=== PATIENT | female | born 1990 | race Caucasian/White ===

== ENCOUNTER → 2020-03-27 10:27 | Outpatient (CLI) | payer BC, SELFPAY ==
[2020-03-27 09:13] VITALS: BMI 28.9
[2020-04-01 04:58] LABS: HPV Reflexed? NOT INDICATED
== END ==
PROVIDERS: PCP Family Medicine; Referring Provider Obstetrics & Gynecology; Visit Provider Obstetrics & Gynecology
DX: Z12.4 Encounter for screening for malignant neoplasm of cervix (principal); O03.9 Complete or unspecified spontaneous abortion without complication
CPT/HCPCS: 36415; 84702; 88175; G0145

== ENCOUNTER → 2020-03-29 08:12 | Outpatient (CLI) | payer BC, SELFPAY ==
[2020-03-27 09:13] VITALS: BMI 28.9
== END ==
PROVIDERS: PCP Family Medicine; Referring Provider Obstetrics & Gynecology; Visit Provider Obstetrics & Gynecology
DX: O03.9 Complete or unspecified spontaneous abortion without complication (principal)
CPT/HCPCS: 36415; 84702

== ENCOUNTER 2020-04-01 10:43 | Day surgery (SDC) | payer BC, SELFPAY ==
[2020-03-31 09:04] VITALS: BMI 28.9
--- NOTE | 2020-04-01 08:11 | PCM.HPOB.BLA ---
- Problem List (1) Missed Status: Acute Comment: plan suction d and c (2) Supervision of other normal Status: Acute Comment: SELMA 10/29/2020 PC: Keith Spouse: Corona History and Physical Date of Admission: 04/01/20 Intake Vital Signs 03/31/20 Height 5 ft 03/31/20 Weight: 149 lb 03/31/20 BMI 29.0 03/31/20 BP 116/60 Intake Visit Reasons: possible SAB Chief Complaint: possible SAB Director Decision Support Required: No Is patient in pain?: No Allergies No Known Allergies Allergy (Verified 03/31/20 09:03) Post menopausal: No Patient : Yes : No [facility] Medical History No significant medical problems (Acute) Surgical History H/O section (Acute ~2012) Family History Mother Hypertension Grandfather Diabetes Social History (Updated 03/31/20 @ 10:[address] Leatha Berry MD) adopted: No household members: family housing: house number of children: 1 current occupational status: employed current occupation: [employer] current occupational exposures/hazards: No history of recent travel: No sexually active: Yes Smoking Status: Former smoker second hand exposure: No alcohol intake: current alcohol intake frequency: holidays/special occasions only substance use type: does not use seatbelt use: always do you feel safe at home: Yes additional social history: [place]- [employer] HPI possible SAB : Details: MAO WU is a 29 year old who presents for fu of early . her hcg levels are decreasing and GS is collapsing, no pole seen now. confirmed nonviable on ultrasound today. Pregancy History 2 Elective abortions Hx Para 1 Spontaneous abortions Hx # Term Pregnancies Ectopic pregnancies Hx # Pregnancies Multiple births # of living children 1 Past Pregnancies Del. Date Name GA/Weeks Outcome Route Bth Weight Gen Labor Lgth Anesthesia Del Locatn Provider FOB 02/01/13 Keith Jurado 40 live - full term 7lb Male [address] [facility] Delivery Date: 02/01/13 On 03/27/20 @ 09:26 Mitali Overton STAT C/S CPD ROS Const Constitutional: Denies fatigue, fever(s), headache(s), increased appetite, poor appetite, weight gain or weight loss Cardio Card: Denies chest pain Resp Resp: Denies cough or dyspnea GI GI: Reports as per HPI; denies abdominal pain, constipation, nausea or vomiting : Reports as per HPI; denies difficulty urinating, painful urination, nipple discharge, urinary frequency, urinary incontinence, urinary hesitancy, urinary urgency, vaginal discharge, vaginal dryness, vaginal odor or vaginal itching Skin Skin/Breast: Denies change in hair, breast lump, breast pain, breast skin changes or nipple discharge Exam Const General: cooperative, healthy appearing, comfortable, no acute distress, well developed Nutritional Appearance: average body habitus Orientation: alert HENMT Head: normal to inspection, normocephalic Neck Neck: normal visual inspection, trachea midline Thyroid: thyroid normal Resp Effort & Inspection: normal respiratory effort GI Inspection: normal to inspection, non-distended Palpation: soft, no hepatosplenomegaly General: bladder normal to palpation External Female Exam: normal external appearance, normal appearance of the urethra Urethra: normal appearance of the urethra, normal palpation, no discharge Speculum Exam - Vagina: normal appearance of the vagina, normal vaginal discharge Speculum Exam - Cervix: normal appearance of the cervix, nontender Bimanual Exam- Vagina & Uterus: normal bimanual exam, uterine size normal, bladder normal to palpation, uterine shape normal, No cervical tenderness, uterine mobility normal, uterine consistency normal, normal cervical palpation, uterus non-tender Bimanual Exam- Adnexa, other: normal adnexae, adnexae mobile, no adnexal masses, pelvic support normal Pelvic Support: normal Skin General: no rashes or lesions noted Assessment & Plan Problems 1. Missed O02.1 plan suction d and c Plan discussed medical vs surgical management patient wishes to proceed with surgical. plan d and c tomorrow. After discussing the patient's diagnosis and treatment plan options, patient wishes to proceed with surgical management. I have discussed with the patient the risks, benefits, and alternatives of the procedure which include but are not limited to risks of anesthesia, bleeding, infection, possible damage to bowel, bladder, or surrounding vasculature which could lead to additional surgery to evaluate any complications. Patient agrees to procedure and wishes to proceed. Coding Level of Care Code Off vis,est,level 4 Diagnoses Missed O02.1 UPDATE- I have seen the patient and performed any clinically relevant updates to the history and physical exam. Leatha Berry MD
--- NOTE | 2020-04-01 08:14 | DCINST_ITS ---
Discharge Diet: No Restrictions Discharge Activity: Return to Normal Activity, May Shower, May Take a Tub Bath Allergies/Adverse Reactions: Allergies No Known Allergies Allergy (Verified 03/31/20 11:33) Medications to take at Discharge Multivitamin 1 ea PO DAILY 03/31/20 Naproxen [Naprosyn] 250 - 500 mg PO Q8H PRN PRN #30 tab 04/01/20 The following prescriptions were given: Naproxen [Naprosyn] 250 - 500 mg PO Q8H PRN PRN #30 tab PRN Reason: MILD PAIN Transmission Status: Pending to [facility] Orders to be completed after discharge: Type & Screen - PAT ONLY Time Frame: 04/01/20, Facility: [facility], Location: Laboratory CBC-Complete Blood Cnt No Diff Time Frame: 04/01/20, Facility: [facility], Location: Laboratory CORONAVIRUS 19, [place] SCREEN Time Frame: 04/01/20, Facility: [facility], Location: Laboratory Primary Care Physician: Percy Marshall MD [Primary Care Provider] - Test Results: Test results from this visit will be discussed in further detail at your follow- up appointment, if applicable. Please Follow Up With: Leatha Berry MD - [phone]
--- NOTE | 2020-04-01 09:17 | PCM.OPRPT ---
Problem List (1) Missed Status: Acute Comment: plan suction d and c (2) Supervision of other normal Status: Acute Comment: SELMA 10/29/2020 PC: Keith Spouse: Corona Report of Operation Date of Procedure: 04/01/20 Pre-Operative Diagnosis: missed 6 weeks Post-Operative Diagnosis: same Surgery/Procedure Performed:: suction d and c Description of Surgical Findings:: missed Type of Anesthesia:: Local MAC Special Medications: none Specimen's removed: poc Drains: none Estimated Blood Loss (mL): 100 Fluids Replaced: crystalloid Description of Procedure: Patient was taken to the operating room and placed under MAC local anesthesia. She was prepped and draped in the normal sterile fashion the dorsal lithotomy position. Bladder was drained of clear urine and anterior lip of the cervix was grasped and the uterus sounded to 9. Cervix was progressively dilated to allow passage of a 9mm suction curette. Progressive passes were made removing the retained products of conception without complication. Sharp curettage confirmed complete removal of the retained products. All instruments were removed from the vagina and excellent hemostasis was noted and the patient was taken to recovery in stable condition. Grafts/Implants Used: none - Complications none - Admit VTE Documentation VTE Present on Admission: No VTE Mechan Device Prophylaxis: SCD's Multi Select Codes - Urinary/Genital Urinary/Genital CPT Codes: 87587 Surg Trtmt missed Ab 1TM
[2020-04-01 11:07] LABS: Hematocrit 39.6 % (37-47); Hemoglobin 13.2 g/dL (12.0-15.0); Mean Corp Hgb Conc 33.3 g/dL (32-36); Mean Corpuscular Hgb 29.9 pg (27.0-32.0); Mean Corpuscular Volume 89.8 fL (81-99); Mean Platelet Vol. 9.8 fl (6.2-12.0); Platelet Count 285 K/mm3 (150-450); RBC Distribution Width CV 12.1 % (11.6-14.6); RBC Distribution Width SD 39.8 fl (35.1-43.9); Red Blood Count 4.41 M/mm3 (4.2-5.4); White Blood Count 7.7 K/mm3 (4.4-11.0)
[2020-04-01 11:13] VITALS: BP 116/62; PULSE 81; RESP 16; TEMP 37.2; O2SAT 100; BMI 28.6
[2020-04-01] MEDS: Doxycycline 100 MG CAPSULE PO (11:22)
[2020-04-01] MEDS: Lactated Ringers 1,000 ML 100 ML IV (11:25)
[2020-04-01 12:10] VITALS: BP 103/65; BP 116/62; PULSE 78; RESP 16; TEMP 37.1; O2SAT 100
[2020-04-01 12:15] VITALS: BP 116/62; BP 95/70; PULSE 66; RESP 18; O2SAT 100
--- NOTE | 2020-04-01 12:15 | POC_PTH ---
PATIENT: MAO WU LOC: [place] U#:[id number] AGE/SX: 29/F ROOM: RE04/01/[address]: Dr. Leatha Berry MD : 1990 BED: DIS: 04/01/2020 SPEC #: [id number] RECD: 04/01/20 12:22 STATUS: KADE REVíctor #: [id number] AZEEM: 04/01/20 12:[address]: Leatha Berry DEPT: SURGICAL PATHOLOGY RECD BY: Marco Vang ENTERED: 04/02/20 09:23 SP TYPE: PROD CONC OTHR DR: LUIS FERNANDO Lara Tissues: Product of conception, NOS Procedures: Surgery Specimen Level IV HEADER OPERATION: Suction D & C PRE-OP DIAGNOSIS: Missed TISSUE SUBMITTED: Products of conception MICROSCOPIC DIAGNOSIS Products of conception: [place], gestational endometrium and immature chorionic villi (products of conception). SJ:leanna 04/03/20 MICROSCOPIC DESCRIPTION Slides are reviewed. GROSS DESCRIPTION Received in fixative is one container labeled with the patient's name and designated products of conception. The specimen consists of multiple irregular fragments of peña soft tissue that in aggregate measure 5 x 2.5 x 1 cm. tissue is not identified. Steam Table Associate tissue is submitted in three cassettes. / SJ:leanna 04/02/20 TC:5 CPT: 17959
[2020-04-01 12:20] VITALS: BP 116/62; BP 91/66; PULSE 70; RESP 18; O2SAT 100
[2020-04-01 12:25] VITALS: BP 116/62; BP 88/68; PULSE 71; RESP 18; TEMP 36.7; O2SAT 100
[2020-04-01 13:20] VITALS: BP 108/64; BP 116/62; PULSE 67; RESP 18; TEMP 36.6; O2SAT 100
== END 2020-04-01 13:22 | disposition home or self-care (01) ==
LOC: SDC 10:45 → AC 10:47
PROVIDERS: Anesthesiology; PCP Nurse Practitioner Family; Referring Provider Obstetrics & Gynecology; Visit Provider Obstetrics & Gynecology
PROC: (CPT 59820; principal; 2020-04-01 12:00)
DX: O02.1 Missed abortion (principal); Z87.891 Personal history of nicotine dependence
CPT/HCPCS: 01965; 59820; 36415; 85027; 86850; 86900; 86901; 87635; 88305; G2023; J7120; J2405; U0003

== ENCOUNTER → 2020-05-08 | Outpatient (CLI) | payer BC, SELFPAY ==
[2020-05-08 10:44] VITALS: BMI 28.6
== END | disposition home or self-care (01) ==
LOC: LABSPEC 16:47
PROVIDERS: PCP Nurse Practitioner Family; Referring Provider Obstetrics & Gynecology; Visit Provider Obstetrics & Gynecology
DX: N89.8 Other specified noninflammatory disorders of vagina (principal)
CPT/HCPCS: 87070; 87205

== ENCOUNTER → 2021-03-25 15:10 | Outpatient (CLI) | payer BC, SELFPAY ==
[2021-03-16 16:07] VITALS: BMI 28.6
[2021-03-25 16:29] LABS: hCG Titer Quant., Serum 530 mIU/mL (1-3)
== END ==
LOC: PAVLAB 15:11
PROVIDERS: PCP Nurse Practitioner Family; Referring Provider Obstetrics & Gynecology; Visit Provider Obstetrics & Gynecology
DX: N91.2 Amenorrhea, unspecified (principal)
CPT/HCPCS: 36415; 84702

== ENCOUNTER → 2021-03-27 14:56 | Outpatient (CLI) | payer BC, SELFPAY ==
[2021-03-16 16:07] VITALS: BMI 28.6
[2021-03-27 17:24] LABS: hCG Titer Quant., Serum 1006 mIU/mL (1-3)
== END ==
LOC: LAB 14:57
PROVIDERS: Nurse Practitioner Women's Health; PCP Nurse Practitioner Family; Referring Provider Obstetrics & Gynecology; Visit Provider Obstetrics & Gynecology
DX: N91.2 Amenorrhea, unspecified (principal)
CPT/HCPCS: 36415; 84702

== ENCOUNTER → 2021-04-14 16:48 | Outpatient (CLI) | payer BC, SELFPAY ==
[2021-03-30 10:40] VITALS: BMI 28.6
--- NOTE | 2021-04-14 16:51 | US_ITS ---
STUDY: FIRST TRIMESTER OBSTETRICAL ULTRASOUND REASON FOR EXAM: Female, 30 years old viability LMP: 02/21/2021 TECHNIQUE: Transvaginal TECHNICAL QUALITY: Adequate. PRIOR ULTRASOUND: None. FINDINGS: There is visualization of a single gestational sac in a normal intrauterine position. The mean sac diameter (MSD) measures 2 cm, indicating an estimated gestational age (EGA) of 6 weeks, 6 days. The gestational sac shape is within normal limits. There is a 6 mm x 6 mm x 2 mm crescentic hypoechoic fluid collection adjacent to the gestational sac suggestive of a small subchorionic bleed. There is a visualized yolk sac. The yolk sac measures 3.1 mm. The placenta is non-visualized. There is visualization of a live embryo. The crown-rump length (CRL) measures 1.03 cm, indicating an estimated gestational age (EGA) of 7 weeks, 1 days. There is demonstrated cardiac activity with a heart rate of 153 bpm. The estimated gestation age (EGA) by LMP is 7 weeks, 3 days. The estimated date of delivery (SELMA) by LMP is 11/28/2021. The estimated gestation age (EGA) by US is 7 weeks, 2 days. The estimated date of delivery (SELMA) by US is 11/29/2021. The uterus measures 10 cm x 6.5 cm x 5.2 cm. There is no demonstrated uterine fibroid. The cervix is closed. The right ovary was not visualized. The left ovary measures 3.2 cm x 2.2 cm by 2.2 cm. There is a 2.1 cm x 1.9 cm x 1.7 cm cyst. There is no visualized left adnexal mass or complex lesion. There is no fluid in the cul de sac. US/Transvaginal w/Preg US IMPRESSION: Single live intrauterine gestation with mean gestational age of 7 weeks and 2 days. Small subchorionic bleed. Electronically Signed: Sebastian Chappell MD at 9:31 EDT , Service support ,
== END ==
LOC: US 16:49
PROVIDERS: PCP Nurse Practitioner Family; Referring Provider Obstetrics & Gynecology; Visit Provider Obstetrics & Gynecology
DX: O20.0 Threatened abortion (principal)
CPT/HCPCS: 76817

== ENCOUNTER → 2021-04-27 14:03 | Outpatient (CLI) | payer BC, SELFPAY ==
[2021-03-30 10:40] VITALS: BMI 28.6
[2021-04-27 15:39] LABS: hCG Titer Quant., Serum 105665 mIU/mL (1-3)
== END ==
LOC: PAVLAB 14:04
PROVIDERS: Nurse Practitioner Women's Health; PCP Nurse Practitioner Family; Referring Provider Obstetrics & Gynecology; Visit Provider Obstetrics & Gynecology
DX: Z34.90 Encounter for supervision of normal pregnancy, unspecified, unspecified trimester (principal)
CPT/HCPCS: 36415; 84702

== ENCOUNTER → 2021-05-04 10:22 | Outpatient (CLI) | payer BC, SELFPAY ==
[2021-05-04 09:29] VITALS: BMI 28.6
[2021-05-04 10:45] LABS: Absolute Lymphocyte Count 1.14 X10^3/uL (0.83-4.51); Basophil# 0.02 X10^3/uL; Basophil% 0.3 % (0-1); Eosinophils% 1.3 % (0-5); Hemoglobin 12.2 g/dL (12.0-15.0); Lymphocyte # 1.14 X10^3/ul (0.83-4.51); Lymphocyte % 14.5 % (19-41); Mean Corp Hgb Conc 33.9 g/dL (32-36); Mean Corpuscular Hgb 29.8 pg (27.0-32.0); Mean Platelet Vol. 10.4 fl (6.2-12.0); Monocyte# 0.54 X10^3/uL; Monocyte% 6.9 % (0-10); NRBC Flagged by Analyzer 0 % (0-5); Neutrophil # 6.02 X10^3/uL (2.7-7.7); Neutrophil % 76.6 % (47-70); Platelet Count 258 K/mm3 (150-450); RBC Distribution Width CV 12.3 % (11.6-14.6); RBC Distribution Width SD 40.3 fl (35.1-43.9); Red Blood Count 4.09 M/mm3 (4.2-5.4); White Blood Count 7.9 K/mm3 (4.4-11.0)
[2021-05-04 11:42] LABS: Amphetamine Urine VISTA NEGATIVE (<1000 ng/mL); Barbiturate Urine VISTA NEGATIVE (< 200 ng/mL); Benzodiazepine Urine VISTA NEGATIVE (< 200 ng/mL); Cocaine Urine VISTA NEGATIVE (< 300 ng/mL); Ecstacy Urine VISTA NEGATIVE (< 500 ng/mL); Methadone Urine VISTA NEGATIVE (< 300 ng/mL); PCP Urine VISTA NEGATIVE (< 25 ng/mL); THC Urine VISTA NEGATIVE (< 50 ng/mL); Vista UDS pH Range 7
[2021-05-04 12:00] LABS: HIV - WCH Non-Reactive (Nonreactive); Hepatitis B Surface Antigen Non-Reactive (Nonreactive); Hepatitis C Antibody Non-Reactive (Nonreactive); Rubella IgG Reactive (Nonreactive); Syphilis Antibodies Non-reactive
[2021-05-05 20:08] LABS: Chlamydia By Nucleic Acid AMP Negative (Negative)
[2021-05-05 21:31] LABS: Gonococcus By Nucleic Acid AMP Negative (Negative)
== END ==
PROVIDERS: PCP Nurse Practitioner Family; Referring Provider Obstetrics & Gynecology; Visit Provider Obstetrics & Gynecology
DX: Z34.81 Encounter for supervision of other normal pregnancy, first trimester (principal)
CPT/HCPCS: 36415; 80307; 85025; 86703; 86762; 86780; 86803; 86850; 86900; 86901; 87086; 87088; 87340; 87491; 87591

== ENCOUNTER → 2021-07-06 13:28 | Outpatient (CLI) | payer BC, SELFPAY ==
--- NOTE | 2021-07-06 13:33 | US_ITS ---
STUDY: SECOND AND THIRD TRIMESTER OBSTETRICAL ULTRASOUND REASON FOR EXAM: Female, 31 years old anatomy LMP: 02/22/2021. TECHNIQUE: Transabdominal and Transvaginal TECHNICAL QUALITY: Adequate. PRIOR ULTRASOUND: Comparison is made with prior study dated 04/14/2021. FINDINGS: There is a single intrauterine fetus. The fetus is in a cephalic presentation. There is demonstrated cardiac activity with a heart rate of 145 bpm. There is a normal amniotic fluid volume. The largest amniotic fluid pocket measures 4.5 cm x 4 cm. The amniotic fluid index (MORAIMA) is within normal limits. The placenta is posterior in location and is not low lying. There are Grade 0 placental changes. The cervix measures 5.1 cm in length. The bilateral adnexal regions are normal. BIOMETRY: BPD: 4.2 cm: 18 weeks, 4 days HC: 15.9 cm: 18 weeks, 5 days AC: 14.8 cm: 20 weeks, 0 days FL: 3.0 cm: 19 weeks, 1 days CI: 75% FL/BPD: 72% FL/HC: FL/AC: 20% HC/AC: 1.07 age by current US: 18 weeks, 6 days. SELMA by current US: 12/01/2021. Estimated weight: 299 grams, +/- 45 grams, 69 %. age by prior US: 19 weeks, 1 days. SELMA by prior US: 11/29/2019. Age by LMP: 19 weeks, 1 days. SELMA by LMP: 11/29/2021. ANATOMY: Gender: Female Cranium: Normal lateral ventricles. Normal choroid plexus. Normal cerebellum. Normal cisterna magna. Normal face, nose and lips. Chest: Normal 4-chamber heart. Abdomen/Pelvis: Normal diaphragm. Normal stomach. Normal abdominal wall. Normal cord insertion. Normal 3 vessel cord. Normal kidneys. Normal bladder. Spine: Normal cervical spine. Normal thoracic spine. Normal lumbar spine. Normal sacrum. Extremities: Normal bilateral upper extremities. Normal bilateral lower extremities. IMPRESSION: Single live intrauterine gestation with administration of 19 weeks and 1 day. The measurements obtained today fall within normal expected range. Electronically Signed: Sebastian Chappell MD at 15:41 EDT , Service support , STUDY: FIRST TRIMESTER OBSTETRICAL ULTRASOUND REASON FOR EXAM: Female, 31 years old . Cervical length measurement. LMP: 02/22/2021. TECHNIQUE: Transvaginal TECHNICAL QUALITY: Adequate. PRIOR ULTRASOUND: None. FINDINGS: Transvaginal examination for assessment of the cervical mass. Cervical length measures 5.1 cm. US/Transvaginal Non- IMPRESSION: Cervical length measures 5.1 cm. Electronically Signed: Sebastian Chappell MD at 15:42 EDT , Service support ,
--- NOTE | 2021-07-06 13:33 | US_ITS ---
STUDY: SECOND AND THIRD TRIMESTER OBSTETRICAL ULTRASOUND REASON FOR EXAM: Female, 31 years old anatomy LMP: 02/22/2021. TECHNIQUE: Transabdominal and Transvaginal TECHNICAL QUALITY: Adequate. PRIOR ULTRASOUND: Comparison is made with prior study dated 04/14/2021. FINDINGS: There is a single intrauterine fetus. The fetus is in a cephalic presentation. There is demonstrated cardiac activity with a heart rate of 145 bpm. There is a normal amniotic fluid volume. The largest amniotic fluid pocket measures 4.5 cm x 4 cm. The amniotic fluid index (MORAIMA) is within normal limits. The placenta is posterior in location and is not low lying. There are Grade 0 placental changes. The cervix measures 5.1 cm in length. The bilateral adnexal regions are normal. BIOMETRY: BPD: 4.2 cm: 18 weeks, 4 days HC: 15.9 cm: 18 weeks, 5 days AC: 14.8 cm: 20 weeks, 0 days FL: 3.0 cm: 19 weeks, 1 days CI: 75% FL/BPD: 72% FL/HC: FL/AC: 20% HC/AC: 1.07 age by current US: 18 weeks, 6 days. SELMA by current US: 12/01/2021. Estimated weight: 299 grams, +/- 45 grams, 69 %. age by prior US: 19 weeks, 1 days. SELMA by prior US: 11/29/2019. Age by LMP: 19 weeks, 1 days. SELMA by LMP: 11/29/2021. ANATOMY: Gender: Female Cranium: Normal lateral ventricles. Normal choroid plexus. Normal cerebellum. Normal cisterna magna. Normal face, nose and lips. Chest: Normal 4-chamber heart. Abdomen/Pelvis: Normal diaphragm. Normal stomach. Normal abdominal wall. Normal cord insertion. Normal 3 vessel cord. Normal kidneys. Normal bladder. Spine: Normal cervical spine. Normal thoracic spine. Normal lumbar spine. Normal sacrum. Extremities: Normal bilateral upper extremities. Normal bilateral lower extremities. IMPRESSION: Single live intrauterine gestation with administration of 19 weeks and 1 day. The measurements obtained today fall within normal expected range. Electronically Signed: Sebastian Chappell MD at 15:41 EDT , Service support , STUDY: FIRST TRIMESTER OBSTETRICAL ULTRASOUND REASON FOR EXAM: Female, 31 years old . Cervical length measurement. LMP: 02/22/2021. TECHNIQUE: Transvaginal TECHNICAL QUALITY: Adequate. PRIOR ULTRASOUND: None. FINDINGS: Transvaginal examination for assessment of the cervical mass. Cervical length measures 5.1 cm. US/OB Anatomy Scan IMPRESSION: Cervical length measures 5.1 cm. Electronically Signed: Sebastian Chappell MD at 15:42 EDT , Service support ,
== END ==
PROVIDERS: PCP Nurse Practitioner Family; Visit Provider Obstetrics & Gynecology
DX: O09.92 Supervision of high risk pregnancy, unspecified, second trimester (principal); Z3A.19 19 weeks gestation of pregnancy
CPT/HCPCS: 76805; 76830

== ENCOUNTER → 2021-08-31 10:28 | Outpatient (CLI) | payer BC, SELFPAY ==
[2021-08-31 10:44] LABS: Absolute Lymphocyte Count 1.25 X10^3/uL (0.83-4.51); Absolute Neutrophil Count 8.8 X10^3/uL (2.0-7.7); Basophil# 0.03 X10^3/uL; Basophil% 0.3 % (0-1); Eosinophil# 0.12 X10^3/uL; Eosinophils% 1.1 % (0-5); Hematocrit 34.7 % (37-47); Hemoglobin 11.8 g/dL (12.0-15.0); Lymphocyte # 1.25 X10^3/ul (0.83-4.51); Lymphocyte % 11.4 % (19-41); Mean Corpuscular Volume 88.3 fL (81-99); Mean Platelet Vol. 10.3 fl (6.2-12.0); Monocyte% 6.4 % (0-10); NRBC Flagged by Analyzer 0 % (0-5); Neutrophil # 8.75 X10^3/uL (2.7-7.7); Platelet Count 252 K/mm3 (150-450); RBC Distribution Width CV 12.9 % (11.6-14.6); RBC Distribution Width SD 41.8 fl (35.1-43.9); Red Blood Count 3.93 M/mm3 (4.2-5.4); White Blood Count 10.9 K/mm3 (4.4-11.0)
[2021-08-31 11:09] LABS: Glucose Challenge Gest 1H 50g 117 mg/dL (70-140)
== END ==
PROVIDERS: Nurse Practitioner Women's Health; PCP Nurse Practitioner Family; Referring Provider Obstetrics & Gynecology; Visit Provider Obstetrics & Gynecology
DX: Z34.92 Encounter for supervision of normal pregnancy, unspecified, second trimester (principal); Z3A.20 20 weeks gestation of pregnancy
CPT/HCPCS: 36415; 82950; 85025

== ENCOUNTER → 2021-10-06 15:03 | Outpatient (CLI) | payer BC, SELFPAY ==
--- NOTE | 2021-10-06 15:06 | US_ITS ---
STUDY: SECOND AND THIRD TRIMESTER OBSTETRICAL ULTRASOUND - LIMITED REASON FOR EXAM: Female, 31 years old growth LMP: 02/22/2021 PRIOR ULTRASOUND: 07/06/2021 TECHNIQUE: Transabdominal TECHNICAL QUALITY: Adequate. FINDINGS: There is a single intrauterine fetus. The fetus is in a cephalic presentation. There is demonstrated cardiac activity with a heart rate of 152 bpm. There is a normal amniotic fluid volume. The largest amniotic fluid pocket measures 6.1 cm. The amniotic fluid index (MORAIMA) is 11.8 cm. The placenta is fundal in location. There are Grade 0 placental changes. The cervix measures 3.5 cm cm in length. BIOMETRY: BPD: 7.5 cm: 30 weeks, 2 days HC: 28.8 cm: 31 weeks, 4 days AC: 30.9 cm: 34 weeks, 6 days FL: 6.2 cm: 31 weeks, 6 days Age by LMP: 32 weeks, 2 days. SELMA by LMP: 11/29/2021. age by current US: 32 weeks, 0 days. SELMA by current US: 2222. Estimated weight: 2185 grams, +/- 328 grams, 74 percentile. Gender: US/OB Limited With Biometrics IMPRESSION: Living intrauterine of 32 weeks 0 days as described above. Electronically Signed: Justin Mooney MD at 8:58 EST Tel , Service support ,
== END ==
PROVIDERS: PCP Nurse Practitioner Family; Referring Provider Obstetrics & Gynecology; Visit Provider Obstetrics & Gynecology
DX: O98.513 Other viral diseases complicating pregnancy, third trimester (principal); U07.1 COVID-19; Z3A.32 32 weeks gestation of pregnancy
CPT/HCPCS: 76816

== ENCOUNTER 2021-11-02 10:47 | Outpatient (CLI) | payer BC, SELFPAY ==
--- NOTE | 2021-11-02 10:50 | US_ITS ---
STUDY: SECOND AND THIRD TRIMESTER OBSTETRICAL ULTRASOUND - LIMITED REASON FOR EXAM: Female, 31 years old growth LMP: 02/22/2021. PRIOR ULTRASOUND: Comparison is made with prior study dated 10/06/2021. TECHNIQUE: Transabdominal TECHNICAL QUALITY: Adequate. FINDINGS: There is a single intrauterine fetus. The fetus is in a cephalic presentation. There is demonstrated cardiac activity with a heart rate of 141 bpm. There is a normal amniotic fluid volume. The largest amniotic fluid pocket measures 5.1 cm x 2.9 cm. The amniotic fluid index (MORAIMA) is 14.2 cm. The placenta is right lateral in location and is not low lying. There are Grade 2 placental changes. The cervix measures 3.8 cm in length. BIOMETRY: BPD: 8.45 cm: 34 weeks, 0 days HC: 32.04 cm: 36 weeks, 0 days AC: 33.68 cm: 37 weeks, 4 days FL: 7.04 cm: 36 weeks, 0 days Age by LMP: 36 weeks, 1 days. SELMA by LMP: 11/29/2021. age by prior US: 35 weeks, 6 days. SELMA by prior US: 12/01/2021. age by current US: 35 weeks, 5 days. SELMA by current US: 12/02/2021. Estimated weight: 3004 grams, +/- 451 grams, 66.4 percentile. US/OB Limited With Biometrics IMPRESSION: Single live intrauterine gestation with a mean gestational age of 35 weeks and 6 days. The measurements obtained today fall within the normal expected range. Electronically Signed: Sebastian Chappell MD at 12:57 EST , Service support ,
== END 2021-11-02 23:59 | disposition short-term general hospital (02) ==
PROVIDERS: PCP Nurse Practitioner Family; Referring Provider Obstetrics & Gynecology; Visit Provider Obstetrics & Gynecology
DX: O98.513 Other viral diseases complicating pregnancy, third trimester (principal); U07.1 COVID-19; Z3A.35 35 weeks gestation of pregnancy
CPT/HCPCS: 76816; 87077; 87081; 87186

== ENCOUNTER 2021-11-23 06:36 | Inpatient (IN) | payer BC, SELFPAY ==
--- NOTE | 2021-11-22 23:03 | HP.PCM.OB_ITS ---
HPI - General HPI Narrative MAO WU, is a 31 F who presents for scheduled repeat c section. Maternal Data Information SELMA Calculator Estimated Delivery Date Method Current WG Current Estimate 11/29/21 Ultrasound #1 39w 0d Other Estimates 11/14/21 LMP (Uncertain) 41w 1d PFSH PFSH Medical History No significant medical problems Positive GBS test Home Medications prenat.vits,tono,bjv-gowd-sgkba 1 tab PO DAILY 03/16/21 [History Last Taken Unkn own] promethazine 12.5 mg tablet 12.5 mg PO Q6H PRN #60 tab 04/20/21 [Rx Last Taken Unknown] aspirin 81 mg chewable tablet 81 mg PO DAILY 11/02/21 [History Last Taken Unknown] Allergy/AdvReac Type Severity Reaction Status Date / Time No Known Allergies Allergy Verified 11/16/21 12:04 Family History Mother Hypertension Grandfather Diabetes Surgical History H/O section (~2012) History of dilation and curettage Social History adopted: No household members: spouse and children housing: house number of children: 1 current occupational status: employed current occupation: [employer] current occupational exposures/hazards: No pets and animals: Yes (avoid litter box) pets and animals: cat(s) and dog(s) history of recent travel: No sexually active: Yes Smoking Status: Former smoker second hand exposure: No alcohol intake: current alcohol intake frequency: holidays/special occasions only details: not while substance use type: does not use seatbelt use: always do you feel safe at home: Yes additional social history: [place] History 3 Elective abortions Hx Para 1 Spontaneous abortions 1 Hx # Term Pregnancies Ectopic pregnancies Hx # Pregnancies Multiple births # of living children 1 Past Pregnancies Del. Date Name GA/Weeks Outcome Route Bth Weight Gen Labor Lgth Anesthesia Del Locatn Provider FOB Unknown SAB w/D&C 04/2020 M uri 02/01/13 Keith Jurado 40 live - full term 7lb Male [address] [facility] Arabella Schwartz Delivery Date: No notes to display Delivery Date: 02/01/13 STAT C/S CPD Mitali Overton Visit Details Expected Delivery Route/Plan RLTCS with SM Plans Covid status: non immune, counseled regarding immunization and contact precautions. Flu vaccine: given Tdap vaccine: given Rhogam: na LARC form signed: yes movement and labor precautions reviewed. Problem list reviewed and updated with the most current plan of care details and appropriate orders placed. Relevant counseling for the gestational age provided. Continue routine care and follow up unless otherwise noted in visit notes/problem list details OB Flowsheet Initial Weight: 159 lb Date -?-?-?-?-?-?-?-?-?-?-?-?- EGA Weight BP Urine Prot -?-?-?-?-?-?-?-?-?-?-?-?- Glucose FHR FuHt Pres Dilation -?-?-?-?-?-?-?-?-?-?-?-?- Effaced St Visit Note 05/04/21 -?-?-?-?-?-?-?-?-?-?-?-?- 10w 1d 159 lb (+0 oz) 102/72 -?-?-?-?-?-?-?-?-?-?-?-?- 170 -?-?-?-?-?-?-?-?-?-?-?-?- SM- no vb some c rmaping doing well 06/01/21 -?-?-?-?-?-?-?-?-?-?-?-?- 14w 1d 148 lb 6 oz (-10 lb 10 oz) 110/66 -?-?-?-?-?-?-?-?-?-?-?-?- 160 -?-?-?-?-?-?-?-?-?-?-?-?- SM- no vb lof cr amping 07/13/21 -?-?-?-?-?-?-?-?-?-?-?-?- 20w 1d 156 lb 8 oz (-2 lb 8 oz) 110/78 Negative -?-?-?-?-?-?-?-?-?-?-?-?- Negative 150 -?-?-?-?-?-?-?-?-?-?-?-?- GP - no cramping or bleeding. Anatomy nl. Discussed COVID vaccine in . 08/10/21 -?-?-?-?-?-?-?-?-?-?-?-?- 24w 1d 164 lb 4 oz (+5 lb 4 oz) 110/60 Negative -?-?-?-?-?-?-?-?-?-?-?-?- Negative 158 24 -?-?-?-?-?-?-?-?-?-?-?-?- MH-No Vb, LOF. G ood FM. Plans flu vaccine at work. Some leg discomfort at work, wearing compression stocking, supportive shoes. NO S&S DVT. 28 wk labs next visit. 08/31/21 -?-?-?-?-?-?-?-?-?-?-?-?- 27w 1d 173 lb (+14 lb) 100/60 Negative -?-?-?-?-?-?-?-?-?-?-?-?- Negative 150 27 -?-?-?-?-?-?-?-?-?-?-?-?- JV- taty toda y. c/o varicosities. plans to use compression stockings more frequently. tdap today 09/14/21 -?-?-?-?-?-?-?-?-?-?-?-?- 29w 1d 175 lb (+16 lb) 112/72 Negative -?-?-?-?-?-?-?-?-?-?-?-?- Negative 150 29 -?-?-?-?-?-?-?-?-?-?-?-?- SM- no vb lof go od fm no regular ctx 09/28/21 -?-?-?-?-?-?-?-?-?-?-?-?- 31w 1d 181 lb 8 oz (+22 lb 8 oz) 118/66 Negative -?-?-?-?-?-?-?-?-?-?-?-?- Negative 147 -?-?-?-?-?-?-?-?-?-?-?-?- MH-No Vb, LOF. D ec FM: reactive NST 10/19/21 -?-?-?-?-?-?-?-?-?-?-?-?- 34w 1d 184 lb 8 oz (+25 lb 8 oz) 110/80 Negative -?-?-?-?-?-?-?-?-?-?-?-?- Negative 165 32 -?-?-?--?-?-?-?-?-?-?-?-?- JV- normal growt h ultraound at 32 weeks, fundal height slightly lower rpt growth scan at 36 . 10/27/21 -?-?-?-?-?-?-?-?-?-?-?-?- 35w 2d 188 lb 2 oz (+29 lb 2 oz) 120/80 Negative -?-?-?-?-?-?-?-?-?-?-?-?- Negative 129 36 -?-?-?-?-?-?-?-?-?-?-?-?- JV- pt is swelli ng more than normal. She may want to start maternity leave earlier than planned. She will call if needs note 11/02/21 -?-?-?-?-?-?-?-?-?-?-?-?- 36w 1d 188 lb (+29 lb) 100/70 -?-?-?-?-?-?-?-?-?-?-?-?- 135 37 Cephalic 0 -?-?-?-?-?-?-?-?-?-?-?-?- SM- no vb lof go od fm no reuglar ctx gbs today us done today 11/09/21 -?-?-?-?-?-?-?-?-?-?-?-?- 37w 1d 190 lb 6 oz (+31 lb 6 oz) 130/84 Negative -?-?-?-?-?-?-?-?-?-?-?-?- Negative 135 38 Cephalic 0 -?-?-?-?-?-?-?-?-?-?-?-?- Sm- no vb lof go od fm irregular ctx pelvic pressure 11/16/21 -?-?-?-?-?-?-?-?-?-?-?-?- 38w 1d 189 lb (+30 lb) 120/82 -?-?-?-?-?-?-?-?-?-?-?-?- 130 -?-?-?-?-?-?-?-?-?-?-?-?- SM- no vb lof go od fm no regular ctx 11/23/21 -?--?-?-?-?-?-?-?-?-?-?-?- 39w 1d -?-?-?-?-?-?-?-?-?-?-?-?- -?-?-?-?-?-?-?-?-?-?-?-?- NST FHR Rate Baby A Baseline: 130 ROS Constitutional Constitutional: Reports systems reviewed and no addt'l complaints, except as documented Eyes Eyes: Denies change in vision ENT HEENT: Reports systems reviewed and no addt'l complaints, except as documented; Denies headache(s) Cardiovascular Cardiovascular: Reports systems reviewed and no addt'l complaints, except as documented; Denies chest pain or dyspnea Respiratory/Chest Respiratory/Chest: Reports systems reviewed and no addt'l complaints, except as documented Gastrointestinal Gastrointestinal: Reports systems reviewed and no addt'l complaints, except as documented; Denies abdominal pain Genitourinary Genitourinary: Reports systems reviewed and no addt'l complaints, except as documented, contractions Details: present (irregular) and movement Details: present; Denies dysuria or genital lesions Musculoskeletal Musculoskeletal: Reports systems reviewed and no addt'l complaints, except as documented Neurologic Neurologic: Reports systems reviewed and no addt'l complaints, except as documented Endocrine Endocrinology: Reports systems reviewed and no addt'l complaints, except as documented Physical Exam Const alert, oriented x3, no apparent distress and healthy appearing HEENT normocephalic and moist oral mucous membranes Head and Scalp: atraumatic Neck full ROM, no lymphadenopathy, supple and thyroid normal General: trachea midline Lymph Lymphatic: no lymphadenopathy noted Chest inspection of chest normal Resp normal respiratory effort Cardio regular rate GI normal to inspection, nondistended, normoactive bowel sounds, soft to palpation and non-tender Inspection: gravid external exam normal Manual OB Exam: estimated gestational size appropriate, presentation cephalic, dilated, effaced and station Extremity normal to inspection General Extremity: Negative for edema Skin no rashes or lesions noted Neuro no focal motor deficits and deep tendon reflexes 2+ bilaterally Motor Exam: strength 5/5 throughout and clonus absent Psych mental status grossly normal Labs Labs Labs: Blood Type B POSITIVE Antibody Screen NEGATIVE Hct 34.7 % (37-47) L Hgb 11.8 g/dL (12.0-15.0) L Obstetrics US Syphilis Total Ab Non-reactive Rubella IgG Antibody Reactive (Nonreactive) Hep Bs Antigen Non-Reactive (Nonreactive) Neisseria gonorrhoeae DNA ([place]) Negative (Negative) HIV 1&2 Antibody Non-Reactive (Nonreactive) Glucose 1 Hr 50 gm 117 mg/dL (70-140) Miscellaneous Test Assessment & Plan (1) H/O section: COMMENT: CPD, stat, RLTCS 11/23/21 @ 7:30am (2) : QUALIFIERS: Weeks of gestation: 38 weeks Qualified Code(s): Z3A.38 - 38 weeks gestation of COMMENT: anatomy nl, declines carrier, NIPT-low risk female. afp declined. NL 28 wk labs (3) Supervision of high risk , antepartum: COMMENT: PRR SELMA 11/29/21 girl Lee PC: Keith Spouse: [place] (4) COVID-19 affecting , antepartum: COMMENT: pt advised to start baby aspirin, growth US @ 32and 36 weeks (5) Positive GBS test: COMMENT: PCN at delivery
[2021-11-23] VITALS (17 sets, daily range): BP systolic 100–128; BP diastolic 35–78; PULSE 61–104; RESP 16–18; TEMP 36.2–36.6; O2SAT 97–100; BMI 37.0
--- NOTE | 2021-11-23 | FALS_PTH ---
PATIENT: MAO WU LOC: [facility] U#:[id number] AGE/SX: 31/F ROOM: WP007 RE11/23/[address]: Dr. Leatha Berry MD : 1990 BED: 1 DIS: 11/25/2021 SPEC #: [id number] RECD: 11/23/21 09:23 STATUS: KADE GALDAMEZ #: [id number] AZEEM: 11/23/21 00:[address]: Leatha Berry DEPT: SURGICAL PATHOLOGY RECD BY: Miko Murrell ENTERED: 11/23/21 11:27 SP TYPE: FALL TUBES OTHR DR: Christin Younger, DRAWING PRESS OPERATOR-C Tissues: Fallopian tube Procedures: Surgery Specimen Level II HEADER OPERATION: Tubal ligation PRE-OP DIAGNOSIS: Sterilization TISSUE SUBMITTED: Fallopian tubes, suture in left tube MICROSCOPIC DIAGNOSIS Bilateral fallopian tubes, salpingectomy: Bilateral fallopian tubes, no pathologic diagnosis. SJ:leanna 11/24/2021 MICROSCOPIC DESCRIPTION Slides are reviewed. GROSS DESCRIPTION Received in fixative is one container labeled with the patient's name and designated bilateral fallopian tubes, stitch left. The specimen consists of bilateral fallopian tubes including fimbrial ends. The right fallopian tube measures 8 cm in length and 0.7 cm in diameter and the left fallopian tube measures 7 cm in length and 1 cm in diameter. Sections reveal unremarkable cut surfaces. Head Mechanic sections are submitted in two cassettes as follows: 1 ? right fallopian tube, 2 ? left fallopian tube. / Naun 11/23/2021 TC:4 CPT: 26199 x2
[2021-11-23] MEDS: Acetaminophen 500 MG Tablet 1000 MG PO ×3 (06:57→18:38)
[2021-11-23] MEDS: Lactated Ringers 1,000 ML 999 ML IV (07:00)
[2021-11-23 07:16] LABS: Absolute Lymphocyte Count 1.66 X10^3/uL (0.83-4.51); Absolute Neutrophil Count 7.1 X10^3/uL (2.0-7.7); Basophil# 0.03 X10^3/uL; Basophil% 0.3 % (0-1); Eosinophil# 0.14 X10^3/uL; Eosinophils% 1.4 % (0-5); Hematocrit 33.7 % (37-47); Hemoglobin 11.7 g/dL (12.0-15.0); Lymphocyte # 1.66 X10^3/ul (0.83-4.51); Lymphocyte % 17.1 % (19-41); Mean Corp Hgb Conc 34.7 g/dL (32-36); Mean Corpuscular Hgb 30.3 pg (27.0-32.0); Mean Corpuscular Volume 87.3 fL (81-99); Mean Platelet Vol. 11.8 fl (6.2-12.0); Monocyte# 0.72 X10^3/uL; Monocyte% 7.4 % (0-10); NRBC Flagged by Analyzer 0 % (0-5); Neutrophil # 7.13 X10^3/uL (2.7-7.7); Neutrophil % 73.5 % (47-70); Platelet Count 220 K/mm3 (150-450); RBC Distribution Width CV 13.6 % (11.6-14.6); RBC Distribution Width SD 43.2 fl (35.1-43.9); Red Blood Count 3.86 M/mm3 (4.2-5.4); White Blood Count 9.7 K/mm3 (4.4-11.0)
--- NOTE | 2021-11-23 07:27 | OP.PCM_ITS ---
Assessment & Plan (1) : QUALIFIERS: Weeks of gestation: 38 weeks Qualified Code(s): Z3A.38 - 38 weeks gestation of COMMENT: anatomy nl, declines carrier, NIPT-low risk female. afp declined. NL 28 wk labs (2) Supervision of high risk , antepartum: COMMENT: PRR SELMA 11/29/21 binh Howard PC: Keith Spouse: [place]ona (3) COVID-19 affecting , antepartum: COMMENT: pt advised to start baby aspirin, growth US @ 32and 36 weeks (4) H/O section: COMMENT: CPD, stat, RLTCS 11/23/21 @ 7:30am (5) Previous delivery, delivered: COMMENT: SM RLTCS binh howard 39 Maternal Data Information SELMA Calculator Estimated Delivery Date Method Current WG Current Estimate 11/29/21 Ultrasound #1 39w 2d Other Estimates 11/14/21 LMP (Uncertain) 41w 3d Final SELMA Source: LMP Details Operative Information Date of Procedure: 11/23/21 Pre-Operative Diagnosis: Previous Post-Operative Diagnosis: same Indications for : Repeat Elective Classification: Scheduled Procedure Type: low transverse (and bilateral salpingectomy) Type of Anesthesia: Spinal Special Medications: none Antibiotic Given: Ancef 2 grams IV x1 Drain: Mcnair to straight drain Estimated Blood Loss: 500 Fluids Replaced: crystalloid Findings Description of Procedure: Spinal anesthesia was placed without difficulty. Mcnair catheter was placed. The patient was placed in the dorsal supine position with leftward tilt. Patient was prepped and draped in the normal sterile fashion. Pfannenstiel skin incision was made with the scalpel and carried thro ugh to the underlying layer of fascia with the scalpel. Fascia was nicked in the midline and the incision extended laterally. The rectus bellies were dissected off superiorly and inferiorly with out complication both sharply and bluntly. The peritoneum was entered digitally. The incision was stretched and a low transverse uterine incision was made with the scalpel. The infant's head was delivered atraumatically followed by the anterior and posterior shoulders without complication the rest of the delivered. The cord was clamped and cut and the was handed off to awaiting nurse. The placenta was delivered spontaneously immediately following and was noted to be intact and have a three- vessel cord. The uterus was exteriorized cleared of all clots and debris, and the incision was closed in a single layer closure using #1 Monocryl. thr right uterine incision extended into the right uterine artery therefore an o leary sttich and additional suturing was placed in the right side. Patient had desired sterilization and was counseled preoperatively regarding irreversibility and permanency. Therefore bilateral fallopian tubes were elevated and transected across using a LigaSure device starting proximally to distally without complication the entire fallopian tubes were removed. The ovaries and fallopian tubes were noted to be within normal limits. The uterus was returned to the maternal abdomen and gutters were cleared of all clots and debris. The peritoneum was closed with 3-0 Monocryl in a running fashion. Gloves were changed prior to fascial closure. Fascia was closed with 0 PDS in a running fashion. Subcutaneous tissue was copiously irrigated and the skin was closed with 3-0 Monocryl in a subcuticular fashion. Mepilex dressing was applied without complication. Patient was taken to recovery in stable condition. Amniotic Membrane Rupture Type: Artificial Amniotic Fluid Description: Clear Placenta Disposition: [facility] Cord Vessel Description: 3 Vessels Cord Entanglement: None Delayed Cord Clamping: Yes Complications Risks of Surgery Discussed w/Patient: Bleeding, Infection, Need for Future C- Sections and Injury to surrounding structure(s) including bowel and bladder Vaginal Delivery Complication Complications: None Admit VTE Documentation VTE Present on Admission: No VTE Mechan Device Prophylaxis: SCD's Multi Select Codes Urinary/Genital Urinary/Genital CPT Codes: 11845 C/S+TL (bilateral salpingectomy) and 38733 Delivery [facility]
--- NOTE | 2021-11-23 07:29 | PCM.DC ---
Discharge Instructions Diet Discharge Diet: No restrictions Activity Discharge Activity: May Not Drive (for 2 weeks or while taking narcotic pain medications.), May Shower and May Take a Tub Bath (in 7 days) May shower in (days): 0 May resume sexual activity in: 4-6 weeks Weight Bearing Status: Full weight bearing Lifting Restrictions: 20 pounds Dressing / Incision Call your doctor if your incision/area has: Continuous Slow Oozing, Sudden Increased Bleeding, Increased Pain/ Swelling, Increased Redness and Foul Smelling Discharge Call your doctor if you observe: Fever of 101 or Higher and Using more than 1 pad per hour (for 2 hours) Suture Line Care: Avoid Pulling/Pushing and Avoid Pinching/Bending Cleanse incision/area with: Soap & Water and Keep Dressing Clean & Dry Follow Up Care Please Follow Up With: Leatha Berry MD When: Call [phone] to make an appointment for an incision check in 1-2 weeks. Test Results: Test results from this visit will be discussed in further detail at your follow-up appointment, if applicable. Discharge Plan Admission Admit Date/Time: 11/23/21 06:36 Attending Provider: Leatha Berry Primary Care Provider: Christin Younger NP Discharge Orders/Prescriptions Prescriptions: New oxycodone-acetaminophen [Endocet] 5-325 mg tablet 1 tab PO Q4H PRN (Reason: pain) 7 Days Qty: 20 RF: 0 naproxen [naproxen] 500 MG tablet 500 mg PO BID PRN PRN (Reason: Pain) Qty: 30 RF: 1 Continued prenat.vits,tono,qie-pjjr-zhaxg Tablet 1 tab PO DAILY RF: 0 aspirin 81 mg tablet,chewable 81 mg PO DAILY RF: 0 Referrals / Follow Up: Christin Younger NP, ADMINISTRATIVE ASSISTANT OFFICE MANAGER-C [Primary Care Provider] - Disposition Disposition (needs filled in before D/C Order can be placed): Home, Self Care
[2021-11-23] MEDS: Sodium Citrate/Citric Acid 30 ML UDC PO (07:42)
[2021-11-23] MEDS: Cefazolin 2 GM in 0.9% Normal Saline 100 ML IV (08:04)
[2021-11-23] MEDS: Oxytocin 30 units/NS 500 ml 30 UNITS/500 ML IV.SOLN 167 UNITS IV (09:10)
[2021-11-23 09:24] LABS: Pathology Specimen OB SEE PATHOLOGY REPORT
[2021-11-23] MEDS: Ketorolac 30 MG/ML Syringe IV ×3 (09:46→21:31)
[2021-11-23] MEDS: HYDROmorphone 1 MG/ML Syringe IV ×2 (10:33→15:44)
[2021-11-23] MEDS: Senna/Docusate Sodium 1 Tablet PO (12:17)
[2021-11-23] MEDS: oxyCODONE 5 MG Tablet PO ×2 (12:17→20:10)
[2021-11-23] MEDS: Lactated Ringers 1,000 ML 100 ML IV (12:23)
[2021-11-23] MEDS: 0.9% Saline Lock 10 ML Syringe IV (15:22)
[2021-11-23] MEDS: Enoxaparin 40 MG/0.4 ML Syringe SC (20:44)
[2021-11-24] MEDS: Acetaminophen 500 MG Tablet 1000 MG PO ×4 (00:57→19:26)
[2021-11-24] MEDS: oxyCODONE 5 MG Tablet PO ×3 (02:42→23:43)
[2021-11-24] MEDS: 0.9% Saline Lock 10 ML Syringe IV (03:55)
[2021-11-24] MEDS: Ketorolac 30 MG/ML Syringe IV (03:55)
[2021-11-24 04:10] VITALS: BP 104/66; PULSE 80; RESP 18; TEMP 37
[2021-11-24 05:46] LABS: Hematocrit 28.9 % (37-47); Hemoglobin 9.8 g/dL (12.0-15.0); Mean Corp Hgb Conc 33.9 g/dL (32-36); Mean Corpuscular Hgb 30.6 pg (27.0-32.0); Mean Corpuscular Volume 90.3 fL (81-99); Mean Platelet Vol. 11.5 fl (6.2-12.0); Platelet Count 170 K/mm3 (150-450); RBC Distribution Width CV 13.8 % (11.6-14.6); RBC Distribution Width SD 46.2 fl (35.1-43.9); White Blood Count 9.6 K/mm3 (4.4-11.0)
--- NOTE | 2021-11-24 07:49 | PCM.PN.OB ---
Subjective Subjective Patient doing well without complaints. Tolerating PO. Ambulating and voiding without difficulty. Feeding well. Denies chest pain, shortness of breath, calf pain/swelling, fevers, chills, lightheadedness. Objective Data Objective Data Vital Signs: Vital Signs Temp Pulse Resp BP Pulse Ox 98.6 F 80 18 104/66 98 11/24/21 04:10 11/24/21 04:10 11/24/21 04:10 11/24/21 04:10 11/23/21 20:05 Oxygen Delivery Method Room Air Weight: 189 lb 9.6 oz Body Mass Index (BMI) 37.0 Intake & Output: Intake and Output for Last 24 Hours 11/22/21 11/23/21 11/24/21 23:59 23:59 23:59 Intake Total 3444.08 / 3444.08 Output Total 3050 / 3050 Balance 394.08 / 394.08 Lab / Micro Data Result Diagrams: 11/24/21 05:30 Labs: Laboratory Results - last 24 hr 11/23/21 07:00: Blood Type B POSITIVE, Antibody Screen NEGATIVE 11/24/21 05:30: WBC 9.6, RBC 3.20 L, Hgb 9.8 L, Hct 28.9 L, MCV 90.3, MCH 30.6, MCHC 33.9, RDW Std Deviation 46.2 H, RDW Coeff of Mark 13.8, Plt Count 170, MPV 11.5 Physical Exam Const alert and oriented x3 HEENT normocephalic Eyes PERRL Neck full ROM Resp normal respiratory effort GI soft to palpation GI Narrative: FF below U. Dressing dry and intact Palpation: tender other (appropriately) Assessment & Plan (1) Previous delivery, delivered: COMMENT: BEHZAD RLTCS, BS girl billy 39 PLAN: s/p LTCS PPD # 1 1. routine post care 2. breast feeding- support given 3. rh positive 4. rubella immune
[2021-11-24 09:22] VITALS: BP 108/79; PULSE 90; RESP 16; TEMP 36.2; O2SAT 98
[2021-11-24] MEDS: Naproxen 500 MG Tablet PO ×2 (09:42→17:49)
[2021-11-24] MEDS: Senna/Docusate Sodium 1 Tablet PO (09:42)
[2021-11-24] MEDS: Enoxaparin 40 MG/0.4 ML Syringe SC (09:42)
[2021-11-24 16:05] VITALS: BP 120/77; RESP 16; TEMP 36.2
[2021-11-24 20:50] VITALS: BP 114/69; PULSE 85; RESP 16; TEMP 36.1; O2SAT 97
[2021-11-25 01:13] VITALS: BP 117/79; PULSE 70; RESP 16; TEMP 36.1; O2SAT 96
[2021-11-25] MEDS: Naproxen 500 MG Tablet PO ×2 (01:24→10:20)
[2021-11-25] MEDS: Acetaminophen 500 MG Tablet 1000 MG PO ×2 (01:24→06:59)
--- NOTE | 2021-11-25 07:54 | PCM.PN.OB ---
Subjective Subjective Patient doing well without complaints. Tolerating PO. Ambulating and voiding without difficulty. Feeding well. Denies chest pain, shortness of breath, calf pain/swelling, fevers, chills, lightheadedness. Objective Data Objective Data Vital Signs: Vital Signs Temp Pulse Resp BP Pulse Ox 97.0 F L 70 16 117/79 96 11/25/21 01:13 11/25/21 01:13 11/25/21 01:13 11/25/21 01:13 11/25/21 01:13 Oxygen Delivery Method Room Air Weight: 189 lb 9.6 oz Body Mass Index (BMI) 37.0 Intake & Output: Intake and Output for Last 24 Hours 11/23/21 11/24/21 11/25/21 23:59 23:59 23:59 Intake Total 3444.08 / 3444.08 Output Total 3050 / 3050 Balance 394.08 / 394.08 Lab / Micro Data Result Diagrams: 11/24/21 05:30 Physical Exam Const alert and oriented x3 HEENT normocephalic Eyes PERRL Neck full ROM Resp normal respiratory effort GI soft to palpation GI Narrative: FF below U. Dressing dry and intact Palpation: tender other (appropriately) Assessment & Plan (1) Previous delivery, delivered: COMMENT: SM RLTCS, BS girl billy 39 shirt PLAN: s/p LTCS PPD # 2 1. routine post care 2. breast feeding- support given 3. rh positive 4. rubella immune 5. home today
[2021-11-25 08:21] VITALS: BP 111/72; PULSE 82; RESP 16; TEMP 36.1; O2SAT 97
[2021-11-25] MEDS: Enoxaparin 40 MG/0.4 ML Syringe SC (10:19)
[2021-11-25] MEDS: Senna/Docusate Sodium 1 Tablet PO (10:20)
== END 2021-11-25 10:50 | disposition home or self-care (01) | DRG 785 ==
PROVIDERS: Admitting Provider Obstetrics & Gynecology; PCP Nurse Practitioner Family; Visit Provider Obstetrics & Gynecology
PROC: 10D00Z1 Extraction of Products of Conception, Low, Open Approach (ICD-10-PCS; CPT 59514; principal; 2021-11-23 07:15)
DX: O34.219 Maternal care for unspecified type scar from previous cesarean delivery (principal); O99.824 Streptococcus B carrier state complicating childbirth; Z30.2 Encounter for sterilization; Z3A.38 38 weeks gestation of pregnancy; Z37.0 Single live birth; Z79.82 Long term (current) use of aspirin; Z87.891 Personal history of nicotine dependence; Z86.16 Personal history of COVID-19
CPT/HCPCS: 59050; 85025; 85027; 86850; 86900; 86901; 88302; 99218; J7120; A4216; G0378